=== PATIENT | female | born 1950 | race Asian ===

== ENCOUNTER 2017-11-07 13:17 | Observation (INO) | payer OTHER ==
[~2017-11-07] VITALS: Ht 157.5 cm; Wt 75.6 kg
[~2017-11-07 13:17] MED LIST: ADULT ASPIRIN R81 MG PO; COUMADIN3 MG PO; GLUCOPHAGE850 MG PO; LIDODERM 5% P1 PATCH PO; LOPRESSOR25 MG PO; PRAVACHOL40 MG PO; PRILOSEC20 MG PO; PRINIVIL20 MG PO; ULTRAM50 MG PO
[2017-11-07 14:20] LABS: HEMATOCRIT 42.8 % (36.0-46.0); HEMOGLOBIN 14.5 G/DL (11.9-15.5); MCH 33.4 PG (29.0-34.0); MCHC 33.9 G/DL (30.0-36.0); MCV 98.6 FL (83-99); PLATELET COUNT 243 K/uL (156-360); RBC DIS.WIDTH-CV 12.8 % (11.8-14.6); RBC DIS.WIDTH-SD 46.5 % (39-53); RED BLOOD COUNT 4.34 M/uL (3.80-5.20)
[2017-11-07 14:27] LABS: INTER. NORMALIZED RATIO 1.7
[2017-11-07 14:30] LABS: CHLORIDE 108 mEq/L (99-109); POTASSIUM 4.6 mEq/L (3.7-5.4); PTT 35.7 SEC (25-37); SODIUM 142 mEq/L (136-147)
[2017-11-07 14:32] LABS: GLUCOSE 115 mg/dL (70-99)
[2017-11-07 14:36] LABS: CREATININE 0.9 mg/dL (0.6-1.3); GFR ESTIMATE (CALCULATED) > 59 mL/min/
[2017-11-07 14:37] LABS: UREA NITROGEN (BUN) 21 mg/dL (9-23)
[2017-11-07 14:40] LABS: TROP-I INTERPRETATION NEGATIVE; TROPONIN-I 0.25 ng/mL (0.0-0.30)
[2017-11-07] MEDS ORDERED: DAILY VALUE1 EACH PO (16:47)
[2017-11-07 19:39] LABS: HDL CHOLESTEROL 59 MG/DL (Desirable>=50); LDL CHOLESTEROL 56 mg/dL (Desirable<100); NON-HDL CHOLESTEROL 84 mg/dL (Desirable<160); TOTAL CHOLESTEROL 143 mg/dL (Desirable<200); TRIGLYCERIDES 142 MG/DL (Normal: <150)
[2017-11-07 19:59] LABS: THYROTROPIN (TSH) 0.53 MIU/L (0.4-5.5)
[2017-11-07 21:04] LABS: TROP-I INTERPRETATION NEGATIVE; TROPONIN-I 0.25 ng/mL (0.0-0.30)
[2017-11-07 21:08] VITALS: BP 121/77
[2017-11-08] VITALS (7 sets, daily range): BP systolic 114–145; BP diastolic 62–87
[2017-11-08 02:45] LABS: TROP-I INTERPRETATION NEGATIVE; TROPONIN-I 0.24 ng/mL (0.0-0.30)
[2017-11-08 05:35] LABS: INTER. NORMALIZED RATIO 1.7
[2017-11-09 03:43] VITALS: BP 126/71
[2017-11-09 05:30] LABS: INTER. NORMALIZED RATIO 2.4
[2017-11-09 09:00] VITALS: BP 125/71
[2017-11-09 11:19] VITALS: BP 143/67
== END 2017-11-09 13:47 | disposition home or self-care (01) ==
LOC: EME 13:17 → EDOF 18:14 → ENRESERV 18:17 → 5WEST 20:42
PROVIDERS: Internal Medicine; Physician Assistant
DX: I48.2 Chronic atrial fibrillation (principal); Z79.01 Long term (current) use of anticoagulants; M25.511 Pain in right shoulder; I70.0 Atherosclerosis of aorta; M75.101 Unspecified rotator cuff tear or rupture of right shoulder, not specified as traumatic; E11.9 Type 2 diabetes mellitus without complications; I35.1 Nonrheumatic aortic (valve) insufficiency; I10 Essential (primary) hypertension; E78.2 Mixed hyperlipidemia; I69.351 Hemiplegia and hemiparesis following cerebral infarction affecting right dominant side; Z79.82 Long term (current) use of aspirin; Z79.84 Long term (current) use of oral hypoglycemic drugs; Z82.49 Family history of ischemic heart disease and other diseases of the circulatory system; Z83.3 Family history of diabetes mellitus; Z90.710 Acquired absence of both cervix and uterus; Z90.79 Acquired absence of other genital organ(s); Z90.722 Acquired absence of ovaries, bilateral; Z91.81 History of falling; Z88.2 Allergy status to sulfonamides; Z91.013 Allergy to seafood; Z91.018 Allergy to other foods
CPT/HCPCS: 71045; 73030; 73060; 73221; 80048; 80061; 82948; 84443; 84484; 85027; 85610; 85730; 93005; 99281; 99285; G0378; J2270